=== PATIENT | female | born 1940 | race Caucasian/White ===

== ENCOUNTER 2018-10-24 23:00 | Emergency (ER) | payer OTHER ==
[~2018-10-24] VITALS: Ht 172.7 cm; Wt 101.2 kg
--- NOTE | ~2018-10-24 | EKG ---
[place], [place] ELECTROCARDIOGRAM REPORT NAME: EMANUEL BASS UNIT #: [id number] ROOM: DOCTOR: LUIS EDUARDO DRAFT REPORT BIRTHDATE: [birth year] [facility] Test Date: 2018-10-24 Test Time: 23:37:00 Pat Name: EMANUEL BASS Department: Room: Gender: F Shift Supervisor: SS RESP : [id number] Requested By: SHIRA MORALES Order Number: [id number] Reading MD: Daniel Potter MD Measurements Intervals [place] Rate: 71 P: 50 LA: 164 QRS: -62 QRSD: 162 T: -12 QT: 456 QTc: 496 Interpretive Statements Sinus rhythm RBBB and LAFB Probable left ventricular hypertrophy Baseline wander in lead(s) V4,V5,V6 Electronically Signed On 10-25-2018 7:20:50 PDT by Daniel Potter MD CM:EKGRPT:ELECTROCARDIOGRAM REPORT [id number] SHIRA HAMM DRAFT REPORT SHIRA MORALES DO
[~2018-10-24 23:00] MED LIST: AMARYL1 M1 PO; AMARYL4 MG PO; ASPIRIN81 M1 PO; ATIVAN1 MG PO; COZAAR25 M1 PO; COZAAR50 MG PO; DILT-XR240 MG PO; DILTIAZEM240 M2 PO; LANTUS100 U/ML SC; LOMOTIL 0.025 M1 TA1 PO; MOBIC15 MG PO; MULTIVITAMIN1 CTB PO; PROTONIX40 MG PO; TOVIAZ8 MG PO; VITAMIN D31000 I1 PO; Zofran4 MG PO
[2018-10-24 23:01] VITALS: BP 164/74
[2018-10-25 00:17] LABS: BASO % 0.3 % (0.0-1.0); EOS % 0.1 % (1.0-4.0); HEMATOCRIT 46.4 % (37.0-47.0); HEMOGLOBIN 15.5 g/dl (12.0-16.0); LYMPH # 0.7 10*3/uL (1.3-4.4); LYMPH % 8.1 % (27.0-41.0); MEAN CELL VOLUME 90.6 fl (81.0-99.0); MEAN CORPUSCULAR HGB 30.3 pg (27.0-31.0); MEAN CORPUSCULAR HGB CONC 33.4 g/dl (33.0-37.0); MEAN PLATELET VOLUME 11.5 fl (9.6-12.3); MONO # 0.4 10*3/uL (0.1-1.0); MONO % 4.2 % (3.0-9.0); NEUT # 7.6 10*3/uL (2.3-7.9); NEUT % 86.8 % (47.0-73.0); PLATELET COUNT AUTOMATED 116 10*3/uL (130-400); RED BLOOD COUNT 5.12 10*6/uL (4.10-5.10); RED CELL DISTRI WIDTH 12.8 % (0-14.5); WHITE BLOOD COUNT 8.8 10*3/uL (4.8-10.8)
[2018-10-25 00:30] LABS: ACT PARTIAL THROMBO TIME 22.3 SECONDS (20.0-32.1); INTERNATIONAL NORM RATIO 1.1 (2.0-3.5)
[2018-10-25 00:33] LABS: ALBUMIN 3.6 gm/dl (3.1-4.5); ALKALINE PHOSPHATASE 87 U/L (45-117); BUN 11 mg/dl (7-24); CHLORIDE 103 mmol/L (98-107); CREATININE 0.79 mg/dL (0.55-1.02); POTASSIUM 4.1 mmol/L (3.5-5.1); SGOT/AST 9 IU/L (3-35); SGPT/ALT 15 U/L (12-78); SODIUM 139 mmol/L (136-145); TOTAL PROTEIN 7.2 gm/dL (6.4-8.2)
[2018-10-25 00:34] LABS: TROPONIN I 0.017 ng/ml (<0.045)
[2018-10-25 01:10] LABS: BILIRUBIN NEGATIVE (NEGATIVE); BLOOD TRACE-INTACT (NEGATIVE); CLARITY SL CLOUDY (CLEAR); COLOR YELLOW (YELLOW); GLUCOSE 3+ (NEGATIVE); KETONE 2+ (NEGATIVE); LEUKO ESTERASE 1+ (NEGATIVE); NITRITE POSITIVE (NEGATIVE); UROBILINOGEN 0.2 E.U./dl (0.2-1.0)
[2018-10-25] MEDS ORDERED: ONDANSETRON4 MG SL (01:16)
[2018-10-25 01:32] LABS: BACTERIA 2+; RBC 16-20 rbc/hpf (0-2); WBC 41-50 wbc/hpf (0-5)
== END 2018-10-25 01:49 | disposition home or self-care (01) ==
LOC: ED 23:00
PROVIDERS: Student in an Organized Health Care Education/Training Program
DX: R11.2 Nausea with vomiting, unspecified (principal); E11.9 Type 2 diabetes mellitus without complications; Z98.890 Other specified postprocedural states; Z79.899 Other long term (current) drug therapy; Z79.82 Long term (current) use of aspirin; Z79.4 Long term (current) use of insulin